=== PATIENT | female | born 1945 | race Hispanic/Latino ===

== ENCOUNTER 2016-09-30 12:19 | Inpatient (IN) | payer MEDICARE ==
[2016-09-30 12:25] VITALS: BMI 33.0
[2016-09-30] MEDS ORDERED: Vancomycin 1gm in NS 250ml 1 GM/250 ML BAG IVPB STA (13:28)
[2016-09-30 13:41] LABS: ADD MANUAL DIFF? NO
[2016-09-30 13:52] LABS: BASO # 0.08 K/mm3 (0.0-2.0); BASO % 1.2 % (0.0-3.0); EOS # 0.2 (0.0-0.7); EOS % 2.4 % (1.5-5.0); GRAN % 53.4 % (50.0-68.0); HEMATOCRIT 36.1 % (36.0-48.0); LYMPH # 2.3 (1.2-3.4); LYMPH % 35.5 % (22.0-35.0); MEAN CELL VOLUME 84.3 fL (80.0-105.0); MEAN CORPUSCULAR HEMOGLOBIN 28.3 pg (25.0-35.0); MEAN CORPUSCULAR HGB CONC 33.5 g/dl (31.0-37.0); MONO # 0.5 (0.1-0.6); MONO % 7.5 % (1.0-6.0); PLATELET COUNT 268 10^3/uL (120.0-450.0); RED CELL DISTRIBUTION WIDTH 14.2 % (11.5-14.5); WHITE BLOOD COUNT 6.6 10^3/ul (4.5-11.0)
[2016-09-30 13:56] LABS: INR 0.99 (0.93-1.08); PARTIAL THROMBOPLASTIN TIME 24.6 Seconds (23.7-30.8)
[2016-09-30 13:58] LABS: ALB/GLOB RATIO 1.2 (1.1-1.8); ALKALINE PHOSPHATASE 44 U/L (38-133); ALT/SGPT 46 U/L (7-56); AST/SGOT 33 U/L (15-39); BILIRUBIN,TOTAL 0.6 mg/dL (0.2-1.3); BLOOD UREA NITROGEN 18 mg/dL (7-21); CALCIUM 9.9 mg/dL (8.4-10.5); CARBON DIOXIDE 25 mmol/L (21-33); CHLORIDE 104 mmol/L (98-107); GFR AFRICAN-AMERICAN > 60; GLUCOSE,RANDOM 162 mg/dL (70-110); POTASSIUM 4.4 mmol/L (3.6-5.0); SODIUM 140 mmol/L (132-148); TOTAL PROTEIN 7.5 g/dL (5.8-8.3)
[2016-09-30 14:09] LABS: TROPONIN I < 0.01 ng/mL
--- NOTE | 2016-09-30 14:31 | RAD ---
HISTORY: weakness COMPARISON: No prior. FINDINGS: LUNGS: No consolidation. Possible mild pulmonary venous congestion -chronicity unknown PLEURA: No significant pleural effusion identified, no pneumothorax apparent. CARDIOVASCULAR: Minimal cardiomegaly OSSEOUS STRUCTURES: No significant abnormalities. VISUALIZED UPPER ABDOMEN: Normal. OTHER FINDINGS: None. IMPRESSION: No consolidation. Possible mild pulmonary venous congestion - of unknown chronicity. Minimal cardiomegaly
--- NOTE | 2016-09-30 14:47 | ED PDOC ---
Arrival/HPI - General Chief Complaint: Lower Extremity Problem/Injury Time Seen by Provider: 09/30/16 13:18 Historian: Patient - History of Present Illness Narrative History of Present Illness (Text): 09/30/16 14:44 Patient is a 71 year old female sent to the emergency department by skin drier for left foot infection. Patient states two weeks ago she had a callus on her left toe which she "sliced off" with no blood or pain. She states 1 week ago she noticed redness and pus, but no pain. She states she saw her skin drier two days ago and was started on Augmentin. Denies fever, chest pain, shortness of breath, or other complaints. Industrial Equipment Mechanic: Dr. Ponce Time/Duration: > week Symptom Onset: Gradual Symptom Course: Unchanged Associated Symptoms (Text): None Past Medical History - Provider Review Nursing Documentation Reviewed: Yes - Cardiac Hx Cardiac Disorders: Yes Hx Hypertension: Yes - Pulmonary Hx Respiratory Disorders: No - Neurological Hx Neurological Disorder: No - HEENT Hx HEENT Disorder: No - Renal Hx Renal Disorder: No - Endocrine/Metabolic Hx Endocrine Disorders: Yes Hx Diabetes Mellitus Type 2: Yes - Hematological/Oncological Hx Blood Disorders: No - Integumentary Hx Dermatological Disorder: No - Musculoskeletal/Rheumatological Hx Musculoskeletal Disorders: No - Gastrointestinal Hx Gastrointestinal Disorders: No - Genitourinary/Gynecological Hx Genitourinary Disorders: No - Psychiatric Hx Psychophysiologic Disorder: No Hx Depression: No Hx Emotional Abuse: No Hx Physical Abuse: No Hx Substance Use: No - Surgical History Hx Tubal Ligation: Yes - Anesthesia Hx Anesthesia: No - Suicidal Assessment Feels Threatened In Home Enviroment: No Family/Social History - Physician Review Nursing Documentation Reviewed: Yes Family/Social History: Unknown Family HX Smoking Status: Former Smoker Hx Alcohol Use: No Hx Substance Use: No Hx Substance Use Treatment: No Allergies/Home Meds Allergies/Adverse Reactions: Allergies No Known Allergies Allergy (Verified 09/30/16 22:02) Home Medications: Home Meds Medication Instructions Recorded Confirmed Aspirin [Aspirin Chewable] 81 mg PO HS 09/30/16 09/30/16 Cholecalciferol (Vitamin D3) 1,000 units PO HS 09/30/16 09/30/16 [Vitamin D3] Fenofibrate [Tricor] 134 mg PO DAILY 09/30/16 09/30/16 Gabapentin [Neurontin] 1,200 mg PO HS 09/30/16 09/30/16 Insulin Human Isophane (NPH) 50 units SC BID 09/30/16 09/30/16 [Novolin N] Insulin Lispro [humALOG] 0 units SC ACB 09/30/16 09/30/16 Lisinopril [Zestril] 10 mg PO HS 09/30/16 09/30/16 Metformin HCl [Glucophage] 1,000 mg PO BID 09/30/16 09/30/16 [place]-3 Fatty Acids [Fish Oil] 300 mg PO HS 09/30/16 09/30/16 Review of Systems - Review of Systems Constitutional: absent: Fevers Eyes: absent: Vision Changes ENT: absent: Hearing Changes Respiratory: absent: SOB Cardiovascular: absent: Chest Pain Gastrointestinal: absent: Abdominal Pain Genitourinary Female: absent: Dysuria, Hematuria Musculoskeletal: absent: Back Pain Skin: Cellulitis, Other (Left foot infection with redness and pus) Neurological: absent: Headache, Dizziness Endocrine: absent: Diaphoresis Psychiatric: absent: Depression Physical Exam - Physical Exam Narrative Physical Exam (Text): Head: Atraumatic. Normocephalic. Eyes: PERRL. EOMI. Conjunctivae are not pale. ENT: Mucous membranes are moist and intact. Oropharynx is clear and symmetric. Neck: Supple. Full ROM. No JVD. No lymphadenopathy. Cardiovascular: Regular rate. Regular rhythm. Distal pulses intact. Pulmonary/Chest: No evidence of respiratory distress. Clear to auscultation bilaterally. No wheezing, rales or rhonchi. Abdominal: Soft and non-distended. There is no tenderness. No rebound, guarding, or rigidity. No organomegaly. Good bowel sounds. Back: No CVA tenderness. Extremities: No edema. No cyanosis. No clubbing. Full range of motion in all extremities. No calf tenderness. There is dressing and boot noted to foot, history of erythema and pain to third toe. No calf redness or streaking noted, no knee pain or hip pain. Skin: Skin is warm and dry. Neurological: Alert, awake, and oriented. Motor and sensory intact. Psychiatric: Good eye contact. Normal interaction, affect, and behavior. Vital Signs Reviewed: Yes Vital Signs Temp Pulse Resp BP Pulse Ox 09/30/16 15:19 98.6 F 71 18 139/85 96 05/17/17 12:25 98.5 F 83 16 145/69 96 Temperature: Afebrile Blood Pressure: Normal Pulse: Regular Respiratory Rate: Normal Appearance: Positive for: Non-Toxic, Uncomfortable Pain Distress: Mild Mental Status: Positive for: Alert and Oriented X 3 Medical Decision Making ED Course and Treatment: Differential Diagnosis included but are not limited to: cellulitis, osteomyelitis Plan: Will check basic labs and admit. Progress Notes: Patient's imaging studies from prior to arrival reviewed, suggestive of osteomyelitis. In emergency department she is afebrile, nontoxic appearing, no chills. IV antibiotics initiated, dressing present applied by podiatry prior to arrival. Treatment plan reviewed with patient for admission, iv antibiotics. Case discussed with Dr. Meadows who accepts for admission 10/02/16 12:36 - RAD Interpretation Radiology Orders: 09/30/16 13:27 CHEST PORTABLE [RAD] Stat - Medication Orders Current Medication Orders: Acetaminophen (Tylenol 325mg Tab) 650 mg PO Q6H PRN PRN Reason: Fever >100.4 F Acetaminophen (Tylenol 325mg Tab) 650 mg PO Q4H PRN PRN Reason: Pain, Mild (1-3) Last Admin: 10/01/16 22:00 Dose: 650 mg Gabapentin (Neurontin) 1,200 mg PO HS MAGDY PRN Reason: Protocol Last Admin: 10/01/16 22:00 Dose: 1,200 mg Vancomycin HCl (Vancomycin 1gm) 1 gm in 250 mls @ 167 mls/hr IVPB Q12H MAGDY PRN Reason: Protocol Last Admin: 10/02/16 04:28 Dose: 167 mls/hr Insulin Human Lispro (Humalog Med) 0 units SC ACHS MAGDY PRN Reason: Protocol Last Admin: 10/02/16 11:47 Dose: 5 units Insulin Human NPH (Humulin N) 50 units SC 0730,2200 [facility] Last Admin: 10/02/16 08:06 Dose: 50 units Lisinopril (Zestril) 10 mg PO 2200 MAGDY Last Admin: 10/01/16 22:34 Dose: 10 mg Metformin HCl (Glucophage) 1,000 mg PO 1000,2200 MAGDY Last Admin: 10/02/16 10:11 Dose: 1,000 mg Metoprolol Succinate (Toprol Xl) 25 mg PO BRK [facility] Last Admin: 10/02/16 08:07 Dose: 25 mg Oxycodone/Acetaminophen (Percocet 5/325 Mg Tab) 1 tab PO Q4H PRN PRN Reason: Pain, moderate (4-7) Stop: 10/03/16 15:42 Discontinued Medications Acetaminophen (Tylenol 325mg Tab) 650 mg PO Q6H PRN PRN Reason: Fever >100.4 F Aspirin (Aspirin Chewable) 81 mg PO DAILY [facility] Bupivacaine HCl (Marcaine 0.5%) Confirm Administered Dose 30 ml .ROUTE .STK-MED ONE Stop: 10/01/16 07:19 Vancomycin HCl (Vancomycin 1gm) 1 gm in 250 mls @ 167 mls/hr IVPB STAT STA PRN Reason: Protocol Stop: 09/30/16 14:57 Last Admin: 09/30/16 14:08 Dose: 167 mls/hr Piperacillin Sod/Tazobactam Sod (Zosyn 3.375 In Ns 100ml) 100 mls @ 200 mls/hr IVPB Q8 MAGDY PRN Reason: Protocol Stop: 09/30/16 22:29 Last Admin: 09/30/16 22:00 Dose: 200 mls/hr Lidocaine HCl (Lidocaine 2% 20ml Vial) Confirm Administered Dose 20 ml .ROUTE .STK-MED ONE Stop: 10/01/16 07:19 Lisinopril (Zestril) 10 mg PO DAILY [facility] Last Admin: 09/30/16 14:11 Dose: Lisinopril (Zestril) 10 mg PO 2200 [facility] Metformin HCl (Glucophage) 1,000 mg PO BID [facility] Metoprolol Succinate (Toprol Xl) 25 mg PO STAT STA Stop: 09/30/16 15:38 Last Admin: 09/30/16 15:44 Dose: Pneumococcal Polyvalent Vaccine (Pneumovax 23 Vaccine) 0.5 ml IM .ONCE ONE Stop: 09/30/16 23:21 Propofol (Diprivan) Confirm Administered Dose 200 mg .ROUTE .STK-MED ONE Stop: 10/01/16 08:04 - Scribe Statement The provider has reviewed the documentation as recorded by the Sveta Morton Provider Scribe Attestation: All medical record entries made by the Koltonibjoann were at my direction and personally dictated by me. I have reviewed the chart and agree that the record accurately reflects my personal performance of the history, physical exam, medical decision making, and the department course for this patient. I have also personally directed, reviewed, and agree with the discharge instructions and disposition. Disposition/Present on Arrival - Present on Arrival Any Indicators Present on Arrival: No History of DVT/PE: No History of Uncontrolled Diabetes: No Urinary Catheter: No History of Decub. Ulcer: No History Surgical Site Infection Following: None - Disposition Have Diagnosis and Disposition been Completed?: Yes Diagnosis: Osteomyelitis Disposition: HOSPITALIZED Disposition Time: 13:00 Patient Plan: Admission Condition: SERIOUS
[2016-09-30] MEDS ORDERED: Metoprolol Succinate 25 mg XL Tab PO STA (15:37)
[2016-09-30] MEDS ORDERED: Oxycodone/Acetaminophen 5/325 mg Tab PO PRN (15:41)
[2016-09-30] MEDS: Piperacillin/Tazobact 3.375 gm 100 ML IVPB SCH ×2 (15:49→22:00)
[2016-09-30] MEDS: Vancomycin 1gm in NS 250ml 1 GM/250 ML BAG IVPB SCH (15:50)
[2016-09-30 16:16] LABS: URINE BILIRUBIN NEGATIVE (NEGATIVE); URINE BLOOD NEGATIVE (NEGATIVE); URINE GLUCOSE (UA) NEGATIVE (NEGATIVE); URINE KETONE NEGATIVE (NEGATIVE); URINE LEUKOCYTE ESTERASE NEGATIVE Leu/uL (NEGATIVE); URINE PROTEIN NEGATIVE mg/dL (<30 mg/dL)
[2016-09-30 16:22] LABS: URINE APPEARANCE CLEAR (CLEAR); URINE COLOR YELLOW (YELLOW)
[2016-09-30] MEDS: Insulin Lispro (humaLOG) MEDIUM Coverage SC SCH ×2 (17:20→21:58)
--- NOTE | 2016-09-30 19:33 | HP ---
The patient is a 71-year-old, a patient of Dr. Aleman, who was sent to Emergency Room by Dr. Ponce af ter she got MRI report. The patient states that she had a bump on her left third toe and that was sl iced off almost 2 weeks ago, but later on, she noticed that she is having some swelling and pain and redness and some discharge, so she went to see Dr. Ponce, who ordered MRI that showed osteomyelitis , so she was directed to come. She was started on antibiotics. She took for a day or two and after MRI results were received, she was directed to come to Emergency Room for further evaluation for poss ible toe tip amputation. She denies any fever or chills. No history of nausea, vomiting. No histor y of diarrhea. PAST MEDICAL HISTORY: Significant for: 1. Hypertension. 2. Hyperlipidemia 3. Tac-[id number] diabetes. ALLERGIES: She is not allergic to any medication. PAST SURGICAL HISTORY: Significant for tubal ligation in the remote past. MEDICATIONS AT HOME: She is on lisinopril 10 mg daily, Neurontin 1200 at bedtime, vitamin D, aspirin 81 daily and metformin 1000 twice a day, Tricor 134 daily. SOCIAL HISTORY: Denies smoking, drinking or alcohol use. PHYSICAL EXAMINATION: GENERAL: She is awake and alert, communicative, ambulatory. VITAL SIGNS: She is afebrile, pulse 71, respirations 18, blood pressure 139/85. LUNGS: Bilateral good airflow, no rhonchi or crackle. HEART: S1, S2 audible. ABDOMEN: Soft, nontender, no rebound, no guarding. NEUROLOGIC: The patient is awake and alert, communicative. EXTREMITIES: Left third toe is in the dressing. LABORATORY EXAMINATION: WBCs 6.6, hemoglobin 12, hematocrit 36, platelets 268. PT 10.7, INR 0.99, P TT 24.6. Chemistry: Sodium 140, potassium 4.4, chloride 104, CO2 25, BUN 18, creatinine 0.9, blood sugar of 162. LDH 324. CPK 275. MB is 4.9. She had a wound culture done on 09/28 that shows gram-p ositive cocci, sensitivity to follow. She had MRI of the foot done on 09/29 that showed marrow edema in the third distal phalanx consistent with osteomyelitis. ASSESSMENT: 1. Left third toe terminal phalanx osteomyelitis. 2. Hypertension. 3. Ipu-qwervnr-wnpjivhdc diabetes. 4. Hyperlipidemia. PLAN: The patient will be admitted. I will start her on IV antibiotic, get EKG and blood work. Car diology evaluation by Dr. Correia is requested and patient is going to OR for tip amputation in a.m. and she will be followed in a.m. Sarha Meadows MD cc: [id number] TT: 09/30/2016 19:33:16 en
--- NOTE | 2016-09-30 20:52 | CON ---
DATE: 09/30/2016 REASON FOR CONSULTATION: Preop evaluation and risk stratification for possible amputation of the toe for osteomyelitis. BRIEF CLINICAL HISTORY: This is a 71-year-old female with past medical history of diabetes, hyperten swati, hyperlipidemia, came in with a complaint of left toe infection. Initially, patient had a callu s which she tried to remove herself and she sliced off, but later on got infected. The patient got a ntibiotics, but did not help. So she saw Dr. Ponce and admitted for possible resection of the toe for partial amputation of the toe. Denies any chest pain, shortness of breath, any palpitation. PAST MEDICAL HISTORY: Significant for diabetes, hypertension. Denies any history of coronary artery disease. No history of angina or dyspnea on exertion. CURRENT MEDICATIONS: The patient is omega 3, metformin, lisinopril, insulin, gabapentin, fenofibrate , cholecalciferol, aspirin. ALLERGIES: No known drug allergies. FAMILY HISTORY: Significant for mother with coronary artery disease. Father with colon cancer. REVIEW OF SYSTEMS: A 14 point review of systems as per HPI, negative. PHYSICAL EXAMINATION: VITAL SIGNS: Temperature afebrile, heart rate 80, blood pressure 106/67. HEENT: PERRLA. Extraocular muscles intact. NECK: Supple. No carotid bruits. No thyromegaly. CHEST: Clear to auscultation. HEART: S1, S2 regular. ABDOMEN: Soft. EXTREMITIES: Clubbing and cyanosis negative. LABORATORY DATA: Blood workup as follows: WBC 6.6, hemoglobin 12, hematocrit 36.1, platelet count 2 68. Chemistry shows sodium 140, potassium 4.0, chloride 104, carbon dioxide 25, anion gap of 15, BUN 15, creatinine 0.9. EKG shows normal sinus within normal limits. IMPRESSION: Osteomyelitis of left toe requiring a partial amputation, diabetes, hypertension, hyperl ipidemia. No history of documented coronary artery disease, normal EKG. The patient is mild to mode rate risk (low risk) for surgical intervention. No history of recent arrhythmia. No history of melissa na, no history of congestive heart failure. No history of angina. The patient's only risk factors a re diabetes, hypertension, age, and obesity. RECOMMENDATION: The patient is okay to go from cardiac point of view. Will suggest a low-dose beta- anthony. Will follow with you. Thank you, Dr. Meadows for providing the opportunity in taking care of this patient. Liz Correia MD cc: [id number] TT: 09/30/2016 20:51:39 Confirmation # [id number] Dictation # [id number] jn
--- NOTE | 2016-09-30 22:24 | CARD ---
APPROVED REPORT EKG Measurement Heart [id number] OR [id number] [id number] <Conclusion> Normal sinus rhythm Normal ECG
[2016-09-30] MEDS ORDERED: Pneumococcal 23-Valent Vaccine IM ONE (23:20)
[2016-10-01] MEDS ORDERED: Bupivacaine 0.5% Inj(30mL) ONE (07:18)
[2016-10-01] MEDS ORDERED: Lidocaine 2% Inj (20ml) ONE (07:18)
[2016-10-01] MEDS ORDERED: Propofol 10 mg/ml Inj (20 ML) ONE (08:03)
--- NOTE | 2016-10-01 15:05 | OP ---
PROCEDURE DATE: 10/01/2016 SURGEON: Dr. Ponce. SMUTTER: Dr. Carter, PGY-1. REEL OPERATOR: Dr. Mcguire. ANESTHESIA: IV sedation with local. PREOPERATIVE DIAGNOSIS: Infection of third digit, left foot. POSTOPERATIVE DIAGNOSIS: Infection of third digit, left foot. PROCEDURE PERFORMED: Partial amputation third digit, left foot. INDICATIONS: The patient is a 71-year-old female with the above diagnosis. The patient has exhausted all conservative treatment at this time and now requires surgical intervention. The patient signed the consent after careful explanation of risks, benefits, complications and alternatives for surgical procedure. No guarantees were given nor implied. N.p.o. status was confirmed prior to taking patient to the OR. PREPARATION: The patient was brought into the operating room and placed on the operating room table in supine position. Time-out was performed for identification of the correct patient and procedure. After induction of IV sedation, the patient received a total of 7 mL of a 1:1 mixture of 0.5% Marcaine plain and 1% lidocaine plain in local block type fashion to the left foot. The left foot was then prepped and draped in normal sterile manner and the procedure began. No tourniquet was used for this procedure. DESCRIPTION OF PROCEDURE: Attention was then drawn to the dorsal aspect of the left third digit where a fish mouth type incision was made circumferentially at the level of the DIPJ using a #15 blade. The incision was then extended down through subcutaneous layers down to the level of bone. Using a bone clamp to stabilize the toe, the third digit was then disarticulated from the foot at the level of the DIPJ. The distal phalanx was then passed from the operative field and sent to pathology. Using a bone cutter, the head of the middle phalanx was then cut and passed from the field and sent to pathology. A eid rasp was then used to remove all roughened edges from the bone. Using a fresh #15 blade, the soft tissue was then debulked of fat which was then passed from the field. Next , the surgical site was copiously flushed with sterile saline. A wound culture was then taken at this time. A #2-0 Vicryl suture was used to reapproximate the subcutaneous tissue and #3-0 nylon suture was used to reapproximate the skin edges in simple suture technique. The wound was then dressed with Adaptic , 4 x 4 gauze, Kerlix, and light Coban dressing. POSTOPERATIVE CONDITION: The patient tolerated anesthesia and the procedure well and was escorted to the recovery room with vital signs stable and neurovascular status intact to the left foot. The patient may be weightbearing as tolerated in a surgical shoe. Podiatry will continue to follow while she remains inhouse. Will await results of wound culture and bone pathology results. She is to follow up with Dr. Ponce at the wound care center following discharge. REAL CARTER DPM Ghazala Ponce DPM cc: [id number] TT: 10/01/2016 11:54:04 sayda 10/01/2016 12:22:23 NIDIA
--- NOTE | 2016-10-01 16:49 | PN ---
DATE: 10/01/2016 REASON FOR CONSULTATION AND FOLLOWUP: Preop evaluation and risk stratification for toe amputation. BRIEF CLINICAL HISTORY: This is a 71-year-old obese female with past medical history of diabetes, hy pertension, hyperlipidemia, possible osteomyelitis of the toe because patient removed callus and got infected. Did not get better with antibiotic. The patient going for OR today. Denies any chest luis n, shortness of breath, any palpitation. PHYSICAL EXAMINATION: VITAL SIGNS: Temperature afebrile, heart rate 80, blood pressure 130/80. HEENT: PERRLA. Extraocular muscles intact. NECK: Supple. No carotid bruits. No thyromegaly. CHEST: Clear to auscultation. HEART: S1, S2 regular. ABDOMEN: Soft. EXTREMITIES: Clubbing and cyanosis negative. LABORATORY DATA: Blood workup pending as computer system is down. IMPRESSION: Preop for toe amputation. No absolute contraindication. Hypertension, diabetes, hyperl ipidemia. RECOMMENDATION: The patient is okay to go for surgery. Continue perioperative beta anthony. We dinora l follow with you. Thank you, Dr. Meadows, for providing the opportunity in taking care of the patient. Liz Correia MD cc: [id number] TT: 10/01/2016 16:48:05 Confirmation # [id number] Dictation # [id number] sayda
--- NOTE | 2016-10-01 18:12 | CON ---
DATE: 10/01/2016 LOCATION: 567, bed 1. The patient was seen earlier this morning. REASON FOR CONSULTATION: Is infected left foot. HISTORY OF PRESENT ILLNESS: We have a 71-year-old female with a past medical history of diabetes and infections of the left foot, who was seen by her timber watchman because of a need for amputation of one of the toes on the left foot because of infection. The patient has had this for several months now a nd has been following up with podiatry. Currently when I saw the patient, the patient had undergone surgery already and left foot has been wrapped. The patient denies fever or chills. No nausea or vo miting. No headache or dizziness. No chest pain or shortness of breath. No sore throat. No dyspha jose, no odynophagia, no rhinorrhea, no cough. No abdominal pain, no diarrhea. No dysuria, no hematu dante. The patient also denies animal contacts. Has not been walking barefoot on soil, has not been w ading in water or swimming, and has not traveled outside of [place] in the past 3 months. REVIEW OF SYSTEMS: Is as per history of present illness. PAST MEDICAL HISTORY: As per history of present illness. FAMILY MEDICAL HISTORY: Noncontributory. PERSONAL AND SOCIAL HISTORY: No smoking or alcohol abuse. No illicit drug use. OBJECTIVE: VITAL SIGNS: The patient is afebrile, heart rate 76, respiratory rate 16, blood pressure 120/84. HEAD AND NECK: Normocephalic, atraumatic. No meningismus. LUNGS: Decreased breath sounds bilaterally. HEART: S1 and S2 are normal. ABDOMEN: Soft, nontender, nondistended. EXTREMITIES: The left foot has dry dressings in place, as well bandages. LABORATORY DATA: Unfortunately, we are unable to review the labs with the patient because of the [employer] computer systems. ASSESSMENT: We have a 71-year-old female with past medical history of diabetes and chronic left foot infections, coming in with diabetic foot infection, now status post amputation of all the toes today . Need to rule out osteomyelitis. PLAN: We have started the patient on broad-spectrum antibiotics. She underwent surgery today and we are going to wait for the OR cultures, as well as pathology, to see if the patient does have osteomy elitis, and if there is osteomyelitis, are the margins of the amputation clear. We will follow up th e results and make further recommendations after these results come back. Brendon Sung M.D. cc: [id number] TT: 10/01/2016 18:12:10 Confirmation # [id number] Dictation # [id number] dn
--- NOTE | 2016-10-01 21:51 | CP.PCM.PN ---
Subjective - Date & Time of Evaluation Date of Evaluation: 10/01/16 Time of Evaluation: 21:49 - Subjective Subjective: # 22 angiocath was inserted in left forearm. DX:Poor venous access. Objective - Vital Signs/Intake and Output Vital Signs (last 24 hours): Temp Pulse Resp BP Pulse Ox 98.2 F 87 20 126/67 96 09/30/16 23:03 09/30/16 23:03 09/30/16 23:03 09/30/16 23:03 09/30/16 16:50 Intake and Output: 10/01/16 10/02/16 18:59 06:59 Intake Total 420 Balance 420 - Medications Medications: Current Medications Acetaminophen (Tylenol 325mg Tab) 650 mg PO Q6H PRN PRN Reason: Fever >100.4 F Gabapentin (Neurontin) 1,200 mg PO HS MAGDY PRN Reason: Protocol Last Admin: 09/30/16 22:02 Dose: 1,200 mg Vancomycin HCl (Vancomycin 1gm) 1 gm in 250 mls @ 167 mls/hr IVPB Q12H MAGDY PRN Reason: Protocol Last Admin: 09/30/16 15:50 Dose: Not Given Insulin Human Lispro (Humalog Med) 0 units SC ACHS MAGDY PRN Reason: Protocol Last Admin: 09/30/16 21:58 Dose: 3 units Insulin Human NPH (Humulin N) 50 units SC 0730,2200 [facility] [place] Lisinopril (Zestril) 10 mg PO DAILY [facility] Last Admin: 09/30/16 14:11 Dose: Not Given Metformin HCl (Glucophage) 1,000 mg PO BID [facility] Metoprolol Succinate (Toprol Xl) 25 mg PO BRK [facility] Oxycodone/Acetaminophen (Percocet 5/325 Mg Tab) 1 tab PO Q4H PRN PRN Reason: Pain, moderate (4-7) Stop: 10/03/16 15:42 - Labs Labs: 09/30/16 13:39 09/30/16 13:39 PT 10.7 Seconds (9.9-11.8) 09/30/16 13:39 INR 0.99 (0.93-1.08) 09/30/16 13:39 APTT 24.6 Seconds (23.7-30.8) 09/30/16 13:39
[2016-10-01] MEDS: Insulin Human NPH 1 UNITS/0.01 ML SC SCH (22:01)
[2016-10-01] MEDS: Insulin Lispro (humaLOG) MEDIUM Coverage SC SCH (22:01)
--- NOTE | 2016-10-01 22:22 | RAD ---
PROCEDURE: Left Foot Radiographs. HISTORY: COMPARISON: None. FINDINGS: BONES: Normal. No fracture. JOINTS: Normal. SOFT TISSUES: Normal. OTHER FINDINGS: Previous amputation 3rd distal phalanx IMPRESSION: No acute findings
[2016-10-02] MEDS: Vancomycin 1gm in NS 250ml 1 GM/250 ML BAG IVPB SCH ×3 (04:28→17:27)
[2016-10-02] MEDS: Insulin Human NPH 1 UNITS/0.01 ML SC SCH ×2 (08:06→21:02)
[2016-10-02] MEDS: Metoprolol Succinate 25 mg XL Tab PO SCH (08:07)
[2016-10-02] MEDS: Insulin Lispro (humaLOG) MEDIUM Coverage SC SCH ×2 (11:47→17:19)
[2016-10-02 12:42] LABS: HEMATOCRIT 35.5 % (36.0-48.0); MEAN CORPUSCULAR HEMOGLOBIN 27.8 pg (25.0-35.0); MEAN CORPUSCULAR HGB CONC 32.4 g/dl (31.0-37.0); MEAN PLATELET VOLUME 10.3 fl (7.0-11.0); RED CELL DISTRIBUTION WIDTH 14.6 % (11.5-14.5); WHITE BLOOD COUNT 5.9 10^3/ul (4.5-11.0)
--- NOTE | 2016-10-02 17:07 | CARD ---
APPROVED REPORT EXAM: Two-dimensional and M-mode echocardiogram with Doppler and color Doppler. INDICATION P A T 2D DIMENSIONS Left Atrium (2D)4.0 (1.6-4.0cm)IVSd1.3 (0.7-1.1cm) LVDd4.3 (3.9-5.9cm)PWd1.3 (0.7-1.1cm) LVDs3.2 (2.5-4.0cm)FS (%) 26.5 % LVEF (%)52.1 (>50%) M-Mode DIMENSIONS Aortic Root2.60 (2.2-3.7cm)Aortic Cusp Exc.1.80 (1.5-2.0cm) Aortic Valve AoV Peak Kiqzmehl345.0cm/Ciro Peak GR.9mmHg Mitral Valve MV E Ewcnwgsd56.5cm/sMV A Bzacyzqy89.7cm/sE/A ratio0.8 TDI E/Lateral E'0.0E/Medial E'0.0 Tricuspid Valve TR Peak Gjioygqn270wd/sRAP [id number] Peak Gr.19mmHg [id number] LEFT VENTRICLE The left ventricle is normal size. There is mild concentric left ventricular hypertrophy. The left ventricular function is normal. The left ventricular ejection fraction is within the normal range. There is normal LV segmental wall motion. Transmitral Doppler flow pattern is Grade I-abnormal relaxation pattern. RIGHT VENTRICLE The right ventricle is normal size. There is normal right ventricular wall thickness. The right ventricular systolic function is normal. ATRIA The left atrium size is normal. The right atrium size is normal. AORTIC VALVE The aortic valve is not well visualized. No aortic regurgitation is present. MITRAL VALVE The mitral valve is normal in structure. There is no mitral valve regurgitation noted. TRICUSPID VALVE The tricuspid valve is normal in structure. There is no tricuspid valve regurgitation noted. GREAT VESSELS The aortic root is normal in size. PERICARDIAL EFFUSION There is a trace loculated anterior pericardial effusion. <Conclusion> The left ventricle is normal size. There is mild concentric left ventricular hypertrophy. The left ventricular function is normal. The left ventricular ejection fraction is within the normal range. There is normal LV segmental wall motion. Transmitral Doppler flow pattern is Grade I-abnormal relaxation pattern.
--- NOTE | 2016-10-02 19:46 | PN ---
DATE: 10/02/2016 REASON FOR CONSULTATION AND FOLLOWUP: Preop evaluation, assess LV function for toe amputation. BRIEF CLINICAL HISTORY: This is a 71-year-old female with past history of diabetes, hyperlipidemia, morbid obesity, status post OR for a third toe amputation. Denies any chest pain, shortness of breat h and palpitation. PHYSICAL EXAMINATION: VITAL SIGNS: Temperature afebrile, heart rate ____ , blood pressure 123/73. HEENT: PERRLA. Extraocular muscles intact. NECK: Supple. No carotid bruits. No thyromegaly. CHEST: Clear to auscultation. HEART: S1, S2 regular. ABDOMEN: Soft. EXTREMITIES: Clubbing and cyanosis negative. BLOOD WORKUP: As follows: WBC 5.9, hemoglobin 11.____, hematocrit 35.5, platelet count 241. Chemis try shows sodium 140, potassium 4.0, chloride 104, carbon dioxide 25, anion gap of 15, BUN 18, creati nine 0.9. IMPRESSION: Obesity, diabetes, hypertension, hyperlipidemia, status post toe amputation. RECOMMENDATION: Continue perioperative beta anthony, echo to assess LV function. We will follow arlette diaz. Thank you, Dr. Meadows, for providing the opportunity in taking care of this patient. Liz Correia MD cc: [phone] TT: 10/02/2016 19:46:08 Confirmation # [id number] Dictation # [id number]
--- NOTE | 2016-10-02 20:54 | PN ---
DATE: 10/02/2016 PHYSICAL EXAMINATION: VITAL SIGNS: Temperature is 97.8, pulse of 67, blood pressure 139/71, respirations 18. GENERAL: The patient comfortable, in no acute distress. HEENT: Anicteric sclerae. Moist mucosa. NECK: No JVD or adenopathy. CARDIAC: S1/S2. No murmurs. No rubs. Regular. RESPIRATORY: Clear to auscultation bilaterally. No wheezes, rales, or rhonchi. Good air entry. ABDOMEN: Bowel sounds are positive, soft, nontender, and nondistended. EXTREMITIES: No edema. Has 1+ pulses. LABORATORY DATA: White count of 5.9, hemoglobin 11.5, creatinine 0.9. ASSESSMENT: 1. Osteomyelitis of left third toe. 2. Hypertension. 3. Diabetes type 2. 4. Dyslipidemia. PLAN: The patient is being followed by Dr. Sung and Dr. Ponce. The patient is on insulin for her diabetes. She is on Neurontin for her neuropathy. The patient is on Percocet for pain. She is to continue with Tylenol. She is on lisinopril for hypertension. Her blood cultures and urine cultures have been negative. Tico Malik MD cc: [phone] TT: 10/02/2016 20:53:40 Confirmation # [id number] Dictation # [id number] boaz
--- NOTE | 2016-10-02 21:53 | CP.PCM.PN ---
Subjective - Date & Time of Evaluation Date of Evaluation: 10/02/16 Time of Evaluation: 10:15 - Subjective Subjective: Comfortable in bed, no pain in the left foot, afebrile overnight. Objective - Vital Signs/Intake and Output Vital Signs (last 24 hours): Temp Pulse Resp BP Pulse Ox 97.8 F 66 18 129/64 97 10/02/16 16:00 10/02/16 21:01 10/02/16 16:00 10/02/16 21:01 10/02/16 16:00 Intake and Output: 10/02/16 10/03/16 18:59 06:59 Intake Total 720 520 Balance 720 520 - Medications Medications: Current Medications Acetaminophen (Tylenol 325mg Tab) 650 mg PO Q6H PRN PRN Reason: Fever >100.4 F Acetaminophen (Tylenol 325mg Tab) 650 mg PO Q4H PRN PRN Reason: Pain, Mild (1-3) Last Admin: 10/02/16 20:44 Dose: 650 mg Gabapentin (Neurontin) 1,200 mg PO HS [facility] PRN Reason: Protocol Last Admin: 10/02/16 21:00 Dose: 1,200 mg Vancomycin HCl (Vancomycin 1gm) 1 gm in 250 mls @ 167 mls/hr IVPB Q12H [facility] PRN Reason: Protocol Last Admin: 10/02/16 17:27 Dose: 167 mls/hr Insulin Human Lispro (Humalog Med) 0 units SC ACHS [facility] PRN Reason: Protocol Last Admin: 10/02/16 17:19 Dose: Not Given Insulin Human NPH (Humulin N) 50 units SC 0730,2200 [facility] Last Admin: 10/02/16 21:02 Dose: 50 units Lisinopril (Zestril) 10 mg PO 2200 [facility] Last Admin: 10/02/16 21:01 Dose: 10 mg Metformin HCl (Glucophage) 1,000 mg PO 1000,2200 [facility] Last Admin: 10/02/16 21:01 Dose: 1,000 mg Metoprolol Succinate (Toprol Xl) 25 mg PO BRK [facility] Last Admin: 10/02/16 08:07 Dose: 25 mg Oxycodone/Acetaminophen (Percocet 5/325 Mg Tab) 1 tab PO Q4H PRN PRN Reason: Pain, moderate (4-7) Stop: 10/03/16 15:42 - Labs Labs: 10/01/16 07:00 09/30/16 13:39 PT 10.7 Seconds (9.9-11.8) 09/30/16 13:39 INR 0.99 (0.93-1.08) 09/30/16 13:39 APTT 24.6 Seconds (23.7-30.8) 09/30/16 13:39 - Constitutional Appears: Non-toxic, No Acute Distress - Head Exam Head Exam: NORMAL INSPECTION - ENT Exam ENT Exam: Mucous Membranes Moist - Neck Exam Neck Exam: absent: Lymphadenopathy, Meningismus - Respiratory Exam Respiratory Exam: Decreased Breath Sounds - Cardiovascular Exam Cardiovascular Exam: +S1, +S2 - GI/Abdominal Exam GI & Abdominal Exam: Soft. absent: Tenderness Assessment and Plan - Assessment and Plan (Free Text) Plan: Assessment left foot 3rd digit infection S/P amputation POD #1 DM DM neuropathy S/P tubal ligation Plan continue Vancomycin pending OR cx and pathology will monitor clinically
[2016-10-03] MEDS: Vancomycin 1gm in NS 250ml 1 GM/250 ML BAG IVPB SCH ×2 (03:14→15:12)
[2016-10-03] MEDS: Insulin Lispro (humaLOG) MEDIUM Coverage SC SCH ×4 (10:10→22:09)
[2016-10-03] MEDS: Metoprolol Succinate 25 mg XL Tab PO SCH (10:19)
[2016-10-03] MEDS: Insulin Human NPH 1 UNITS/0.01 ML SC SCH ×2 (10:20→22:08)
--- NOTE | 2016-10-03 11:58 | CP.PCM.CON ---
<Percy Cordoba - Last Filed: 10/03/16 11:50> History of Present Illness - History of Present Illness History of Present Illness: 71 year old female seen at bedside concerning prognosis left 3rd digit amputation secondary to bone infection. Pt reports redness and selling to the digit have improved since admission and start of IV abx. Pt denies fever, chest pain, shortness of breath, or other complaints. Past Patient History - Past Social History Smoking Status: Former Smoker - CARDIAC Hx Cardiac Disorders: Yes Hx Hypertension: Yes - PULMONARY Hx Respiratory Disorders: No - NEUROLOGICAL Hx Neurological Disorder: No - HEENT Hx HEENT Problems: No - RENAL Hx Chronic Kidney Disease: No - ENDOCRINE/METABOLIC Hx Endocrine Disorders: Yes Hx Diabetes Mellitus Type 2: Yes - HEMATOLOGICAL/ONCOLOGICAL Hx Blood Disorders: No - INTEGUMENTARY Hx Dermatological Problems: No - MUSCULOSKELETAL/RHEUMATOLOGICAL Hx Musculoskeletal Disorders: No - GASTROINTESTINAL Hx Gastrointestinal Disorders: No - GENITOURINARY/GYNECOLOGICAL Hx Genitourinary Disorders: No - PSYCHIATRIC Hx Psychophysiologic Disorder: No Hx Depression: No Hx Emotional Abuse: No Hx Physical Abuse: No Hx Substance Use: No - SURGICAL HISTORY Hx Tubal Ligation: Yes - ANESTHESIA Hx Anesthesia: No Meds Allergies/Adverse Reactions: Allergies Allergy/AdvReac Type Severity Reaction Status Date / Time No Known Allergies Allergy Verified 09/30/16 22:02 - Medications Medications: Current Medications Acetaminophen (Tylenol 325mg Tab) 650 mg PO Q6H PRN PRN Reason: Fever >100.4 F Acetaminophen (Tylenol 325mg Tab) 650 mg PO Q4H PRN PRN Reason: Pain, Mild (1-3) Last Admin: 10/02/16 20:44 Dose: 650 mg Gabapentin (Neurontin) 1,200 mg PO HS [facility] PRN Reason: Protocol Last Admin: 10/02/16 21:00 Dose: 1,200 mg Vancomycin HCl (Vancomycin 1gm) 1 gm in 250 mls @ 167 mls/hr IVPB Q12H [facility] PRN Reason: Protocol Last Admin: 10/03/16 03:14 Dose: 167 mls/hr Insulin Human Lispro (Humalog Med) 0 units SC ACHS [facility] PRN Reason: Protocol Last Admin: 10/03/16 10:10 Dose: Not Given Insulin Human NPH (Humulin N) 50 units SC 0730,2200 [facility] Last Admin: 10/03/16 10:20 Dose: 50 units Lisinopril (Zestril) 10 mg PO 2200 [facility] Last Admin: 10/02/16 21:01 Dose: 10 mg Metformin HCl (Glucophage) 1,000 mg PO 1000,2200 [facility] Last Admin: 10/03/16 10:20 Dose: 1,000 mg Metoprolol Succinate (Toprol Xl) 25 mg PO BRK [facility] Last Admin: 10/03/16 10:19 Dose: 25 mg Oxycodone/Acetaminophen (Percocet 5/325 Mg Tab) 1 tab PO Q4H PRN PRN Reason: Pain, moderate (4-7) Stop: 10/03/16 15:42 Physical Exam - Constitutional Appears: Well, Non-toxic, No Acute Distress - Extremities Exam Additional comments: Left Foot: Vasc: DP and PT pulses weakly palpable, graded 1/4. CFT < 4 seconds for digits 1 -5. Neuro: Gross sensation diminished Derm: Left 3rd digit amptation site intact, all sutures are intact. No signs of dehiscence. Erythema and calor noted on the dorsum of the 3rd digit. Ortho: Amputation noted to the distal aspect of the 3rd digit. No tenderness. - Neurological Exam Neurological exam: Alert, Oriented x3 - Psychiatric Exam Psychiatric exam: Normal Affect, Normal Mood Results - Vital Signs Recent Vital Signs: Last Vital Signs Temp 98.2 F 10/03/16 08:00 Pulse 76 10/03/16 08:00 Resp 20 10/03/16 08:00 BP 128/70 10/03/16 08:00 Pulse Ox 98 10/03/16 08:00 - Labs Result Diagrams: 10/01/16 07:00 09/30/16 13:39 Labs: Laboratory Results - last 24 hr 10/01/16 07:00 WBC 5.9 RBC 4.13 Hgb 11.5 L Hct 35.5 L MCV 86.0 MCH 27.8 MCHC 32.4 RDW 14.6 H Plt Count 241 MPV 10.3 Assessment & Plan - Assessment and Plan (Free Text) Assessment: 71 year old female POD #2 for left foot 3rd digit partial amputation secondary to osteomyelits Plan: Pt seen and evaluated at bedside with Dr. Rios present. Charts, labs, and vitals reviewed. Afebrile, absent leukocytosis. Redressed surgical site with Adaptic, sterile 4x4, kerlix, and KIERRA. Continue IV abx. Podiatry will continue to follow while inhouse. - Date & Time Date: 10/03/16 Time: 08:45 <Ki Rios - Last Filed: 10/06/16 11:58> Meds - Medications Medications: Current Medications Acetaminophen (Tylenol 325mg Tab) 650 mg PO Q6H PRN PRN Reason: Fever >100.4 F Last Admin: 10/04/16 22:13 Dose: 650 mg Acetaminophen (Tylenol 325mg Tab) 650 mg PO Q4H PRN PRN Reason: Pain, Mild (1-3) Last Admin: 10/02/16 20:44 Dose: 650 mg Fenofibrate (Tricor) 145 mg PO DAILY [facility] Last Admin: 10/06/16 09:29 Dose: 145 mg Gabapentin (Neurontin) 1,200 mg PO HS [facility] PRN Reason: Protocol Last Admin: 10/05/16 22:02 Dose: 1,200 mg Cefazolin Sodium 2 gm/ Sodium (Chloride) 100 mls @ 200 mls/hr IVPB Q8 [facility] PRN Reason: Protocol Insulin Human Lispro (Humalog Med) 0 units SC ACHS [facility] PRN Reason: Protocol Last Admin: 10/06/16 11:50 Dose: 3 units Insulin Human NPH (Humulin N) 50 units SC 0730,2200 [facility] Last Admin: 10/06/16 09:28 Dose: 50 units Lisinopril (Zestril) 10 mg PO 2200 [facility] Last Admin: 10/05/16 21:57 Dose: 10 mg Metformin HCl (Glucophage) 1,000 mg PO 1000,2200 [facility] Last Admin: 10/06/16 09:29 Dose: 1,000 mg Metoprolol Succinate (Toprol Xl) 25 mg PO BRK [facility] Last Admin: 10/06/16 09:29 Dose: 25 mg Polyethylene Glycol (Miralax) 17 gm PO BID [facility] Last Admin: 10/06/16 09:29 Dose: 17 gm Results - Vital Signs Recent Vital Signs: Last Vital Signs Temp 97.6 F 10/06/16 07:30 Pulse 69 10/06/16 07:30 Resp 20 10/06/16 07:30 BP 116/67 10/06/16 07:30 Pulse Ox 98 10/06/16 07:30 - Labs Result Diagrams: 10/01/16 07:00 10/05/16 11:00 Labs: Laboratory Results - last 24 hr 10/01/16 10/05/16 07:00 13:00 Sodium 140 Potassium 4.4 Chloride 104 Carbon Dioxide 26 Anion Gap 14 BUN 15 Creatinine 0.9 Est GFR ( Amer) > 60 Est GFR (Non-Af Amer) > 60 Random Glucose 156 H Calcium 9.0 Phosphorus 3.8 Magnesium 2.0 Total Bilirubin 0.5 AST 61 H ALT 44 Alkaline Phosphatase 42 Total Protein 6.9 Albumin 3.6 Globulin 3.3 Albumin/Globulin Ratio 1.1 Random Vancomycin 12.3 L Attending/Attestation - Attestation I have personally seen and examined this patient.: Yes I have fully participated in the care of the patient.: Yes I have reviewed all pertinent clinical information: Yes
--- NOTE | 2016-10-03 12:46 | CP.PCM.PN ---
Subjective - Date & Time of Evaluation Date of Evaluation: 10/03/16 Time of Evaluation: 10:25 - Subjective Subjective: No new complaints, no fevers, no pain the left foot. Objective - Vital Signs/Intake and Output Vital Signs (last 24 hours): Temp Pulse Resp BP Pulse Ox 98.2 F 76 20 128/70 98 10/03/16 08:00 10/03/16 08:00 10/03/16 08:00 10/03/16 08:00 10/03/16 08:00 Intake and Output: 10/03/16 10/03/16 06:59 18:59 Intake Total 520 Balance 520 - Medications Medications: Current Medications Acetaminophen (Tylenol 325mg Tab) 650 mg PO Q6H PRN PRN Reason: Fever >100.4 F Acetaminophen (Tylenol 325mg Tab) 650 mg PO Q4H PRN PRN Reason: Pain, Mild (1-3) Last Admin: 10/02/16 20:44 Dose: 650 mg Gabapentin (Neurontin) 1,200 mg PO HS [facility] PRN Reason: Protocol Last Admin: 10/02/16 21:00 Dose: 1,200 mg Vancomycin HCl (Vancomycin 1gm) 1 gm in 250 mls @ 167 mls/hr IVPB Q12H [facility] PRN Reason: Protocol Last Admin: 10/03/16 03:14 Dose: 167 mls/hr Insulin Human Lispro (Humalog Med) 0 units SC ACHS [facility] PRN Reason: Protocol Last Admin: 10/03/16 11:58 Dose: 3 units Insulin Human NPH (Humulin N) 50 units SC 0730,2200 [facility] Last Admin: 10/03/16 10:20 Dose: 50 units Lisinopril (Zestril) 10 mg PO 2200 [facility] Last Admin: 10/02/16 21:01 Dose: 10 mg Metformin HCl (Glucophage) 1,000 mg PO 1000,2200 [facility] Last Admin: 10/03/16 10:20 Dose: 1,000 mg Metoprolol Succinate (Toprol Xl) 25 mg PO BRK [facility] Last Admin: 10/03/16 10:19 Dose: 25 mg Oxycodone/Acetaminophen (Percocet 5/325 Mg Tab) 1 tab PO Q4H PRN PRN Reason: Pain, moderate (4-7) Stop: 10/03/16 15:42 - Labs Labs: 10/01/16 07:00 09/30/16 13:39 PT 10.7 Seconds (9.9-11.8) 09/30/16 13:39 INR 0.99 (0.93-1.08) 09/30/16 13:39 APTT 24.6 Seconds (23.7-30.8) 09/30/16 13:39 - Constitutional Appears: Non-toxic, No Acute Distress - Head Exam Head Exam: NORMAL INSPECTION - Respiratory Exam Respiratory Exam: Decreased Breath Sounds - Cardiovascular Exam Cardiovascular Exam: +S1, +S2 - GI/Abdominal Exam GI & Abdominal Exam: Soft. absent: Tenderness - Extremities Exam Additional comments: left foot with dressings in place Assessment and Plan - Assessment and Plan (Free Text) Plan: Assessment left foot 3rd digit infection S/P amputation POD #2 DM DM neuropathy S/P tubal ligation Plan continue Vancomycin pending OR cx and pathology will continue monitor clinically
--- NOTE | 2016-10-03 18:37 | PN ---
DATE: 10/03/2016 SUBJECTIVE: The patient is 71 years old, seen and examined, lying in bed, seems to be comfortable, e ating and tolerating. No chest pain, no fever, no chills. PHYSICAL EXAMINATION: VITAL SIGNS: She is afebrile, pulse 75, respirations 20, blood pressure 133/73. LUNGS: Bilateral fair airflow, no rhonchi or crackle. HEART: S1, S2 audible. ABDOMEN: Soft, nontender, no rebound, no guarding. NEUROLOGIC: She is awake and alert, communicative, ambulatory. LABORATORY DATA: Her wound cultures are pending. ASSESSMENT AND PLAN: 1. Left foot third toe osteomyelitis, status post amputation. 2. Insulin-dependent diabetes. 3. Diabetic neuropathy. 4. Hypertension. 5. Hyperlipidemia. PLAN: The patient is getting IV vancomycin as per ID recommendation. Awaiting biopsy report from [facility] OR to see if the margins are clear for infection to determine the duration of antibiotics. Will re quest for TCU evaluation. If the patient needs 10-days of antibiotic, that can be completed while [facility] is in TCU and will request for TCU evaluation. If accepted, can be transferred. Sarah Meadows MD cc: [phone] TT: 10/03/2016 18:36:55 Confirmation # [id number] Dictation # [id number]
[2016-10-04] MEDS: Vancomycin 1gm in NS 250ml 1 GM/250 ML BAG IVPB SCH ×2 (04:30→16:09)
[2016-10-04] MEDS: Insulin Human NPH 1 UNITS/0.01 ML SC SCH ×2 (08:19→22:15)
[2016-10-04] MEDS: Metoprolol Succinate 25 mg XL Tab PO SCH ×2 (08:20→08:22)
[2016-10-04] MEDS: Insulin Lispro (humaLOG) MEDIUM Coverage SC SCH ×4 (08:22→22:15)
--- NOTE | 2016-10-04 11:02 | PN ---
DATE: 10/04/2016 SUBJECTIVE: The patient has no complaints of any chest pain, no shortness of breath, no headaches, n o dizziness. PHYSICAL EXAMINATION: VITAL SIGNS: Temperature is 97.9, pulse of 77, blood pressure is 123/69, respiration is 18. GENERAL: The patient comfortable, in no acute distress. HEENT: Anicteric sclerae. Moist mucosa. NECK: No JVD or adenopathy. CARDIAC: S1/S2. No murmurs. No rubs. Regular. RESPIRATORY: Clear to auscultation bilaterally. No wheezes, rales, or rhonchi. Good air entry. ABDOMEN: Bowel sounds are positive, soft, nontender, and nondistended. EXTREMITIES: No edema. Has 1+ pulses. ASSESSMENT: 1. Left foot osteomyelitis of the third toe. 2. Diabetes type 2. 3. Hypertension. 4. Dyslipidemia. 5. Diabetic neuropathy. PLAN: The patient is currently comfortable. She is receiving antibiotics. She is on metformin for her diabetes. She is going to be on gabapentin for neuropathy. She is on fenofibrate for her dyslip idemia. She is on vancomycin. She is going to be on Zestril for hypertension. She is waiting for T CU. She is finishing her antibiotics. She will go to TCU once a bed is available and she is complai neil of constipation, so I will place her on MiraLax. Tico Malik MD cc: [phone] TT: 10/04/2016 11:02:13 Confirmation # [id number] Dictation # [id number]
[2016-10-04] MEDS: POLYETHYLENE GLYCOL 3350 17 GM/Dose PACKET PO SCH ×2 (11:14→17:24)
[2016-10-05] MEDS: Vancomycin 1gm in NS 250ml 1 GM/250 ML BAG IVPB SCH ×2 (04:32→15:25)
[2016-10-05] MEDS: Insulin Human NPH 1 UNITS/0.01 ML SC SCH ×2 (08:26→21:57)
[2016-10-05] MEDS: Insulin Lispro (humaLOG) MEDIUM Coverage SC SCH ×4 (08:26→18:16)
[2016-10-05] MEDS: Metoprolol Succinate 25 mg XL Tab PO SCH (08:28)
[2016-10-05] MEDS: POLYETHYLENE GLYCOL 3350 17 GM/Dose PACKET PO SCH ×2 (09:22→18:20)
[2016-10-05 11:24] LABS: ALB/GLOB RATIO 1.3 (1.1-1.8); ALKALINE PHOSPHATASE 41 U/L (38-133); ALT/SGPT 43 U/L (7-56); AST/SGOT 29 U/L (15-39); BILIRUBIN,TOTAL 0.5 mg/dL (0.2-1.3); BLOOD UREA NITROGEN 19 mg/dL (7-21); CALCIUM 9.8 mg/dL (8.4-10.5); CARBON DIOXIDE 26 mmol/L (21-33); CHLORIDE 105 mmol/L (98-107); GFR AFRICAN-AMERICAN > 60; GLUCOSE,RANDOM 143 mg/dL (70-110); POTASSIUM 4.4 mmol/L (3.6-5.0); SODIUM 140 mmol/L (132-148); TOTAL PROTEIN 7.2 g/dL (5.8-8.3)
--- NOTE | 2016-10-05 12:49 | PN ---
DATE: 10/05/2016 SUBJECTIVE: The patient is 71 years old, seen and examined, lying in bed, anxious to go home. She s tates she feels frustrated. PHYSICAL EXAMINATION: VITAL SIGNS: She is afebrile, pulse 73, respirations 20, blood pressure 118/65. LUNGS: Bilateral fair airflow. No rhonchi or crackle. HEART: S1, S2 audible. ABDOMEN: Soft, obese, nontender. No rebound, no guarding. NEUROLOGIC: She is awake and alert, communicative. LABORATORY EXAMINATION: Sodium 140, potassium 4.4, chloride 105, CO2 of 26, BUN 19, creatinine 0.9, blood sugar of 143. Foot culture is positive for Staphylococcus aureus. ASSESSMENT AND PLAN: 1. Left third toe osteomyelitis, status post amputation. 2. Hypertension. 3. Insulin-dependent diabetes. 4. Peripheral vascular disease. 5. Diabetic neuropathy. 6. Hyperlipidemia. 7. Hypertension. PLAN: Currently, the patient is on metformin. Her blood sugar is being monitored. She is on gabape ntin for nighttime. She is on beta-anthony. She is on Tricor. We will continue that. The patient is also getting vancomycin 1 gram q. 12. Awaiting OR cultures. Once the pathology report cultures a re available, make decision for the duration of antibiotic and make disposition plan. Sarah Meadows MD cc: [phone] TT: 10/05/2016 12:48:47 Confirmation # [id number] Dictation # [id number]
--- NOTE | 2016-10-05 14:51 | CP.PCM.PN ---
<Clotilde Perez - Last Filed: 10/05/16 14:46> Subjective - Date & Time of Evaluation Date of Evaluation: 10/05/16 Time of Evaluation: 14:30 - Subjective Subjective: 71 yo diabetic female patient seen at bedside with Dr. Ponce present POD#3 left 3rd digit partial amputation. Pt seen resting comfortably in bed at time of visit, appears to be in NAD. Denies any pain or discomfort to the left foot at this time. Has been using the surgical shoe for ambulation. Denies f/n/v/c/ sob/cp. States that she is eager to go home soon. Denies any problems at this time. Objective - Vital Signs/Intake and Output Vital Signs (last 24 hours): Temp Pulse Resp BP Pulse Ox 97.5 F L 73 20 118/68 97 10/05/16 07:28 10/05/16 07:28 10/05/16 07:28 10/05/16 07:28 10/05/16 07:28 Intake and Output: 10/05/16 10/05/16 06:59 18:59 Intake Total 840 480 Balance 840 480 - Medications Medications: Current Medications Acetaminophen (Tylenol 325mg Tab) 650 mg PO Q6H PRN PRN Reason: Fever >100.4 F Last Admin: 10/04/16 22:13 Dose: 650 mg Acetaminophen (Tylenol 325mg Tab) 650 mg PO Q4H PRN PRN Reason: Pain, Mild (1-3) Last Admin: 10/02/16 20:44 Dose: 650 mg Fenofibrate (Tricor) 145 mg PO DAILY [facility] Last Admin: 10/05/16 09:22 Dose: 145 mg Gabapentin (Neurontin) 1,200 mg PO HS [facility] PRN Reason: Protocol Last Admin: 10/04/16 22:14 Dose: 1,200 mg Vancomycin HCl (Vancomycin 1gm) 1 gm in 250 mls @ 167 mls/hr IVPB Q12H [facility] PRN Reason: Protocol Last Admin: 10/05/16 04:32 Dose: 167 mls/hr Insulin Human Lispro (Humalog Med) 0 units SC ACHS [facility] PRN Reason: Protocol Last Admin: 10/05/16 08:27 Dose: 1 units Insulin Human NPH (Humulin N) 50 units SC 0730,2200 [facility] Last Admin: 10/05/16 08:26 Dose: 50 units Lisinopril (Zestril) 10 mg PO 2200 [facility] Last Admin: 10/04/16 22:22 Dose: 10 mg Metformin HCl (Glucophage) 1,000 mg PO 1000,2200 [facility] Last Admin: 10/05/16 09:22 Dose: 1,000 mg Metoprolol Succinate (Toprol Xl) 25 mg PO BRK [facility] Last Admin: 10/05/16 08:28 Dose: 25 mg Polyethylene Glycol (Miralax) 17 gm PO BID [facility] Last Admin: 10/05/16 09:22 Dose: Not Given - Labs Labs: 10/01/16 07:00 10/05/16 11:00 PT 10.7 Seconds (9.9-11.8) 09/30/16 13:39 INR 0.99 (0.93-1.08) 09/30/16 13:39 APTT 24.6 Seconds (23.7-30.8) 09/30/16 13:39 - Constitutional Appears: Non-toxic, No Acute Distress - Extremities Exam Extremities Exam: absent: Calf Tenderness Additional comments: LLE focused: bandage appears c/d/i to the left foot Vasc: DP pulse is strongly palpable, PT pulse is faintly palpable, skin temp runs warm to cool, cap refill > 4 sec to digits x 5, no pedal edema Derm: left 3rd digit amputation site appears c/d/i with sutures intact and no evidence of dehisence, no erythema, no callor, scant sanguinous drainage is noted, no fluctuance, no malodor, no ascending cellulitis Neuro: pedal sensation is grossly diminished Ortho: partial amputation to left 3rd digit, no gross deformity noted - Neurological Exam Neurological Exam: Alert, Awake, Oriented x3 - Psychiatric Exam Psychiatric exam: Normal Affect, Normal Mood Assessment and Plan - Assessment and Plan (Free Text) Assessment: 71 yo diabetic female patient POD#4 left foot 3rd digit partial amputation Plan: -Pt S&E at bedside with Dr. Ponce present -Chart, labs, vitals reviewed: afebrile, no leukocytosis noted -c/w IV abx (ceftaroline) per ID -Surgical wound cleansed with betadine swab, DSD and KIERRA applied -Advised to wear surgical shoes at all times for WB'ing -Awaiting surgical pathology report to determine abx recommendations -Pt is stable per podiatry, will continue to follow while she remains in house. -Pt advised to f/u with Dr. Ponce at this office this following discharge. <Ghazala Ponce - Last Filed: 10/18/16 16:40> Objective - Vital Signs/Intake and Output Vital Signs (last 24 hours): Temp Pulse Resp BP Pulse Ox 98.3 F 82 18 160/87 H 97 10/06/16 16:00 10/06/16 16:00 10/06/16 16:00 10/06/16 16:00 10/06/16 16:00 - Labs Labs: 10/01/16 07:00 10/05/16 11:00 PT 10.7 Seconds (9.9-11.8) 09/30/16 13:39 INR 0.99 (0.93-1.08) 09/30/16 13:39 APTT 24.6 Seconds (23.7-30.8) 09/30/16 13:39 Attending/Attestation - Attestation I have personally seen and examined this patient.: Yes I have fully participated in the care of the patient.: Yes I have reviewed all pertinent clinical information, including history, physical exam and plan: Yes
--- NOTE | 2016-10-05 18:04 | PN ---
DATE: 10/05/2016 The patient in room 564, bed 1. REASON FOR CONSULTATION AND FOLLOWUP: Preop evaluation, assess LV function for toe amputation. HISTORY OF PRESENT ILLNESS: The patient is a 71-year-old female with past medical history of diabete s, hyperlipidemia, morbid obesity, status post OR for a third toe amputation. The patient is sitting comfortably, no chest pain, shortness of breath, or palpitation. PHYSICAL EXAMINATION: VITAL SIGNS: Blood pressure 118/68, respirations 20, pulse 73, temperature 97.5. HEAD: Normocephalic. EYES: Pupils normal. Conjunctivae normal. NOSE AND THROAT: Normal. NECK: JVP low. Carotid equal. THORAX: AP diameter normal. LUNGS: Clear. CARDIOVASCULAR: S1, S2. ABDOMEN: Soft. No tenderness, no organomegaly. EXTREMITIES: No clubbing, no cyanosis. The patient had amputation of third digit of the left foot, third toe. LABORATORY DATA: Show WBC 5.9, hemoglobin 11.5, hematocrit 35.5, platelet 241. Sodium 140, potassiu m 4.4, BUN 19, creatinine 0.9, glucose 143. Calcium, AST, ALT normal. Total protein and albumin nor mal. DIAGNOSES: Obesity, diabetes, hypertension, hyperlipidemia, status post left foot third toe amputati on. PLAN: Clinically, the patient's cardiac status is stable. Will continue present therapy including m etoprolol 25 mg p.o. b.i.d., lisinopril 10 mg daily. The patient getting vancomycin 1 gram IV q. 12 hours, Tricor 145 mg daily, Neurontin 1200 mg p.o. at bedtime, insulin as ordered, metformin 1000 mg p.o. daily. Will follow with you. Liz Nye MD cc: [id number] TT: 10/05/2016 18:03:36 Confirmation # [id number] Dictation # [id number] mn
[2016-10-06 03:31] LABS: BLOOD UREA NITROGEN 15 mg/dL (7-21); CARBON DIOXIDE 26 mmol/L (21-33); CHLORIDE 104 mmol/L (98-107); GFR AFRICAN-AMERICAN > 60; GLUCOSE,RANDOM 156 mg/dL (70-110); PHOSPHOROUS 3.8 mg/dL (2.5-4.5); POTASSIUM 4.4 mmol/L (3.6-5.0); SODIUM 140 mmol/L (132-148); TOTAL PROTEIN 6.9 g/dL (5.8-8.3)
[2016-10-06 03:32] LABS: ALB/GLOB RATIO 1.1 (1.1-1.8); ALKALINE PHOSPHATASE 42 U/L (38-133); ALT/SGPT 44 U/L (7-56); AST/SGOT 61 U/L (15-39); BILIRUBIN,TOTAL 0.5 mg/dL (0.2-1.3)
[2016-10-06] MEDS: Vancomycin 1gm in NS 250ml 1 GM/250 ML BAG IVPB SCH (04:30)
[2016-10-06] MEDS: Insulin Lispro (humaLOG) MEDIUM Coverage SC SCH ×4 (07:30→17:46)
[2016-10-06] MEDS: Insulin Human NPH 1 UNITS/0.01 ML SC SCH (09:28)
[2016-10-06] MEDS: Metoprolol Succinate 25 mg XL Tab PO SCH (09:29)
[2016-10-06] MEDS: POLYETHYLENE GLYCOL 3350 17 GM/Dose PACKET PO SCH ×2 (09:29→19:09)
--- NOTE | 2016-10-06 10:10 | PN ---
DATE: 10/06/2016 The patient is in room 564, bed 1. REASON FOR CONSULTATION AND FOLLOWUP: Preop evaluation, assess LV function for toe amputation, diabe aftab mellitus, hypertension, hyperlipidemia. HISTORY OF PRESENT ILLNESS: The patient is a 71-year-old female with past medical history of diabete s, hypertension, hyperlipidemia, morbid obesity, status post amputation third toe on the left foot. The patient now is sitting in bed, comfortably, without any chest pain, shortness of breath, palpitat ion. PHYSICAL EXAMINATION: VITAL SIGNS: Blood pressure 116/67, respirations 20, pulse 69, temperature 97.6. HEAD: Normocephalic. EYES: Pupils normal. Conjunctivae normal. NOSE AND THROAT: Normal. NECK: JVP low. Carotid equal. THORAX: AP diameter normal. LUNGS: Clear. CARDIOVASCULAR: S1, S2. ABDOMEN: Soft, no tenderness, no organomegaly. Bowel sounds normal. EXTREMITIES: As mentioned, amputation third toe on the left foot. LABORATORY DATA: Sodium 140, potassium 4.4, BUN 19, creatinine 0.9. AST, ALT normal. WBC 5.9, hemo globin 11.5, hematocrit 35.5, platelet 241. DIAGNOSES: Status post amputation third toe on the left foot, diabetes, hypertension, hyperlipidemia , morbid obesity. PLAN: Clinically, patient denies any cardiac symptoms. We will continue present therapy including m etoprolol 25 b.i.d., lisinopril 10 mg daily, Tricor 145 mg daily, Neurontin 1200 mg p.o. at bedtime, metformin 1000 mg b.i.d., vancomycin 1 gram IV q. 12 hours. We will follow with you. Liz Nye MD cc: [id number] TT: 10/06/2016 10:09:37 Confirmation # [id number] Dictation # [id number] en
[2016-10-06] MEDS ORDERED: ceFAZolin 2 GM in Sodium Chloride 0.9% 100 ML IVPB SCH (14:00)
--- NOTE | 2016-10-06 14:27 | CP.PCM.PN ---
<Clotilde Perez - Last Filed: 10/06/16 14:36> Subjective - Date & Time of Evaluation Date of Evaluation: 10/06/16 Time of Evaluation: 14:20 - Subjective Subjective: 71 yo diabetic female patient seen at bedside with Dr. Rios present POD #5 left 3rd digit partial amputation. Pt seen resting comfortably in bed at time of visit. Denies any pain or discomfort to the left lower extremity at this time. Says she has been using the surgical shoe at all times for ambulation. Denies f/n/v/c/sob/cp at this time. Denies any complaints today. Is eager to go home. Objective - Vital Signs/Intake and Output Vital Signs (last 24 hours): Temp Pulse Resp BP Pulse Ox 97.6 F 69 20 116/67 98 10/06/16 07:30 10/06/16 07:30 10/06/16 07:30 10/06/16 07:30 10/06/16 07:30 Intake and Output: 10/06/16 10/06/16 06:59 18:59 Intake Total 960 Output Total 700 Balance 260 - Medications Medications: Current Medications Acetaminophen (Tylenol 325mg Tab) 650 mg PO Q6H PRN PRN Reason: Fever >100.4 F Last Admin: 10/04/16 22:13 Dose: 650 mg Acetaminophen (Tylenol 325mg Tab) 650 mg PO Q4H PRN PRN Reason: Pain, Mild (1-3) Last Admin: 10/02/16 20:44 Dose: 650 mg Fenofibrate (Tricor) 145 mg PO DAILY [facility] Last Admin: 10/06/16 09:29 Dose: 145 mg Gabapentin (Neurontin) 1,200 mg PO HS [facility] PRN Reason: Protocol Last Admin: 10/05/16 22:02 Dose: 1,200 mg Cefazolin Sodium 2 gm/ Sodium (Chloride) 100 mls @ 200 mls/hr IVPB Q8 [facility] PRN Reason: Protocol Insulin Human Lispro (Humalog Med) 0 units SC ACHS [facility] PRN Reason: Protocol Last Admin: 10/06/16 11:50 Dose: 3 units Insulin Human NPH (Humulin N) 50 units SC 0730,2200 [facility] Last Admin: 10/06/16 09:28 Dose: 50 units Lisinopril (Zestril) 10 mg PO 2200 [facility] Last Admin: 10/05/16 21:57 Dose: 10 mg Metformin HCl (Glucophage) 1,000 mg PO 1000,2200 [facility] Last Admin: 10/06/16 09:29 Dose: 1,000 mg Metoprolol Succinate (Toprol Xl) 25 mg PO BRK [facility] Last Admin: 10/06/16 09:29 Dose: 25 mg Polyethylene Glycol (Miralax) 17 gm PO BID [facility] Last Admin: 10/06/16 09:29 Dose: 17 gm - Labs Labs: 10/01/16 07:00 10/05/16 11:00 PT 10.7 Seconds (9.9-11.8) 09/30/16 13:39 INR 0.99 (0.93-1.08) 09/30/16 13:39 APTT 24.6 Seconds (23.7-30.8) 09/30/16 13:39 - Constitutional Appears: Well, Non-toxic, No Acute Distress - Extremities Exam Extremities Exam: absent: Calf Tenderness Additional comments: LLE focused: bandage appears c/d/i to the left foot Vasc: DP pulse is strongly palpable, PT pulse is faintly palpable, skin temp runs warm to cool, cap refill > 4 sec to digits x 5, no pedal edema Derm: left 3rd digit amputation site appears c/d/i with sutures intact and no evidence of dehisence, no erythema, no callor, scant sanguinous drainage is noted, no fluctuance, no malodor, no ascending cellulitis Neuro: pedal sensation is grossly diminished Ortho: partial amputation to left 3rd digit, no gross deformity noted - Neurological Exam Neurological Exam: Alert, Awake, Oriented x3 - Psychiatric Exam Psychiatric exam: Normal Affect, Normal Mood Assessment and Plan - Assessment and Plan (Free Text) Assessment: 71 yo diabetic female patient POD#5 left foot 3rd digit partial amputation Plan: -Pt S&E at bedside with Dr. Rios -Chart, labs, vitals reviewed: afebrile, no leukocytosis noted -Pathology specimen report: no evidence of OM -Wound cleansed with betadine, DSD applied with KIERRA bandage -Pt advised to keep dressing c/d/i and to wear surgical shoe at all times for ambulation -Pt instructed to f/u with Dr. Ponce at her office this for dressing change, stitches to be removed at wound care center next week -Stable per podiatry. <Ki Rios - Last Filed: 10/09/16 13:42> Objective - Vital Signs/Intake and Output Vital Signs (last 24 hours): Temp Pulse Resp BP Pulse Ox 98.3 F 82 18 160/87 H 97 10/06/16 16:00 10/06/16 16:00 10/06/16 16:00 10/06/16 16:00 10/06/16 16:00 - Labs Labs: 10/01/16 07:00 10/05/16 11:00 PT 10.7 Seconds (9.9-11.8) 09/30/16 13:39 INR 0.99 (0.93-1.08) 09/30/16 13:39 APTT 24.6 Seconds (23.7-30.8) 09/30/16 13:39 Attending/Attestation - Attestation I have personally seen and examined this patient.: Yes I have fully participated in the care of the patient.: Yes I have reviewed all pertinent clinical information, including history, physical exam and plan: Yes
--- NOTE | 2016-10-06 16:21 | CP.PCM.PN ---
Subjective - Date & Time of Evaluation Date of Evaluation: 10/06/16 Time of Evaluation: 11:25 - Subjective Subjective: Comfortable in bed, afebrile, not in distress. Objective - Vital Signs/Intake and Output Vital Signs (last 24 hours): Temp Pulse Resp BP Pulse Ox 97.6 F 69 20 116/67 98 10/06/16 07:30 10/06/16 07:30 10/06/16 07:30 10/06/16 07:30 10/06/16 07:30 Intake and Output: 10/06/16 10/06/16 06:59 18:59 Intake Total 960 Output Total 700 Balance 260 - Medications Medications: Current Medications Acetaminophen (Tylenol 325mg Tab) 650 mg PO Q6H PRN PRN Reason: Fever >100.4 F Last Admin: 10/04/16 22:13 Dose: 650 mg Acetaminophen (Tylenol 325mg Tab) 650 mg PO Q4H PRN PRN Reason: Pain, Mild (1-3) Last Admin: 10/02/16 20:44 Dose: 650 mg Fenofibrate (Tricor) 145 mg PO DAILY [facility] Last Admin: 10/06/16 09:29 Dose: 145 mg Gabapentin (Neurontin) 1,200 mg PO HS [facility] PRN Reason: Protocol Last Admin: 10/05/16 22:02 Dose: 1,200 mg Cefazolin Sodium 2 gm/ Sodium (Chloride) 100 mls @ 200 mls/hr IVPB Q8 [facility] PRN Reason: Protocol Last Admin: 10/06/16 15:20 Dose: 200 mls/hr Insulin Human Lispro (Humalog Med) 0 units SC ACHS [facility] PRN Reason: Protocol Last Admin: 10/06/16 11:50 Dose: 3 units Insulin Human NPH (Humulin N) 50 units SC 0730,2200 [facility] Last Admin: 10/06/16 09:28 Dose: 50 units Lisinopril (Zestril) 10 mg PO 2200 [facility] Last Admin: 10/05/16 21:57 Dose: 10 mg Metformin HCl (Glucophage) 1,000 mg PO 1000,2200 [facility] Last Admin: 10/06/16 09:29 Dose: 1,000 mg Metoprolol Succinate (Toprol Xl) 25 mg PO BRK [facility] Last Admin: 10/06/16 09:29 Dose: 25 mg Polyethylene Glycol (Miralax) 17 gm PO BID [facility] Last Admin: 10/06/16 09:29 Dose: 17 gm - Labs Labs: 10/01/16 07:00 10/05/16 11:00 PT 10.7 Seconds (9.9-11.8) 09/30/16 13:39 INR 0.99 (0.93-1.08) 09/30/16 13:39 APTT 24.6 Seconds (23.7-30.8) 09/30/16 13:39 - Constitutional Appears: Non-toxic, No Acute Distress - Head Exam Head Exam: NORMAL INSPECTION - Neck Exam Neck Exam: absent: Meningismus - Respiratory Exam Respiratory Exam: Decreased Breath Sounds - Cardiovascular Exam Cardiovascular Exam: +S1, +S2 - GI/Abdominal Exam GI & Abdominal Exam: Soft. absent: Tenderness Assessment and Plan - Assessment and Plan (Free Text) Plan: Assessment left foot 3rd digit infection S/P amputation POD #5, with no evidence of acute osteomyelitis on pathology DM DM neuropathy S/P tubal ligation Plan can switch Cefazolin to Augmentin for another 5 days
[2016-10-06 18:00] VITALS: BP 160/87; PULSE 82; RESP 18; TEMP 98.3; O2SAT 97
--- NOTE | 2016-10-08 08:07 | DS ---
The patient is a 71-year-old, seen and examined. The patient was referred by Dr. Ponce since she w as having left third toe swelling, erythema and pain. Had MRI done, showed osteomyelitis, so she und erwent amputation of the tip of third toe. Has been on IV antibiotics. Grew Staphylococcus aureus f rom the wound, sensitive to penicillin. Wound seems to be doing well. Dr. Sung was consulted and p mariusz is to discharge her on Augmentin. She has been receiving vancomycin and cefazolin. PHYSICAL EXAMINATION: GENERAL: Today, she is awake and alert, communicative. VITAL SIGNS: She is afebrile, pulse 81, respirations 16, blood pressure 120/78. LUNGS: Bilateral fair airflow, no rhonchi or crackle. HEART: S1, S2 audible. ABDOMEN: Soft, nontender, no rebound, no guarding NEUROLOGIC: She is awake and alert, communicative, ambulatory. ASSESSMENT: 1. Left third toe terminal phalanx osteomyelitis, status post amputation. 2. Hypertension. 3. Hyperlipidemia. 4. Insulin-dependent diabetes. PLAN: The patient is being discharged home on Augmentin 875 twice a day for 5 more days. She will f ollow up with Dr. Ponce for wound care. We will reevaluate patient. The patient will follow up wi th her PMD. Sarah Meadows MD cc: [phone] TT: 10/07/2016 11:05:43 en
== END 2016-10-06 18:37 | disposition home or self-care (01) | DRG 617 ==
LOC: ED 12:19 → ERH 13:29 → 5RNO 16:00
PROVIDERS: ADMIT Internal Medicine; ATTEND Internal Medicine
PROC: 0Y6U0Z2 Detachment at Left 3rd Toe, Mid, Open Approach (ICD-10-PCS; principal; 2016-10-01 07:30)
DX: E11.69 Type 2 diabetes mellitus with other specified complication (principal); M86.8X7 Other osteomyelitis, ankle and foot; E11.40 Type 2 diabetes mellitus with diabetic neuropathy, unspecified; E11.51 Type 2 diabetes mellitus with diabetic peripheral angiopathy without gangrene; B95.61 Methicillin susceptible Staphylococcus aureus infection as the cause of diseases classified elsewhere; I10 Essential (primary) hypertension; E66.01 Morbid (severe) obesity due to excess calories; E78.5 Hyperlipidemia, unspecified; Z79.4 Long term (current) use of insulin; Z79.82 Long term (current) use of aspirin; Z68.34 Body mass index [BMI] 34.0-34.9, adult